=== PATIENT | male | born 1970 | race Caucasian/White ===

== ENCOUNTER 2017-08-28 10:42 | Emergency (ER) | payer OTHER ==
[~2017-08-28] VITALS: Ht 180.3 cm; Wt 113.6 kg
[2017-08-28 11:23] LABS: HEMATOCRIT 41.8 % (39.0-50.0); HEMOGLOBIN 15.9 g/dl (14.0-18.0); IMMATURE GRANULOCYTES 0.4 % (0.0-1.0); MEAN CELL VOLUME 84.8 fL CALC (80.0-100.0); MEAN CORPUSCULAR HGB 32.3 pG CALC (26.0-32.0); NEUT# 3.05 thou/uL (1.82-7.42); RED BLOOD COUNT 4.93 mill/uL (4.70-6.10); RED CELL DISTRI WIDTH 11.8 % (11.5-15.5)
[2017-08-28 11:35] LABS: ALBUMIN 4.5 g/dL (3.2-5.0); ALKALINE PHOSPHATASE 78 u/l (38-126); ANION GAP 17 (6-22 (CALC)); BUN 19 mg/dL (9-20); BUN/CREATININE RATIO 19 (12-20 (CALC)); CARBON DIOXIDE 26 mmol/l (22-30); CHLORIDE 100 mmol/l (95-108); GFR > 60 ML/MIN (>=60 (CALC)); GFR FOR AFR.AMER. > 60 ML/MIN (>=60 (CALC)); LIPASE 197 u/l (23-300); POTASSIUM 4.2 mmol/l (3.5-5.1); SGOT/AST 39 u/l (17-59); SGPT/ALT 93 u/l (21-72); SODIUM 138 mmol/l (137-146); TOTAL PROTEIN 7.6 g/dL (6.3-8.2)
[2017-08-28 13:31] LABS: URINE BILIRUBIN - DIPSTICK NEGATIVE (NEGATIVE); URINE BLOOD DIPSTICK NEGATIVE (NEGATIVE); URINE COLOR YELLOW; URINE GLUCOSE - DIPSTICK >=1000 mg/dL (NEGATIVE); URINE KETONE NEGATIVE (NEGATIVE); URINE LEUK ESTERASE NEGATIVE (NEGATIVE); URINE NITRITE - DIPSTICK NEGATIVE (Negative); URINE PROTEIN - DIPSTICK 30 mg/dL (NEG-TRACE); URINE UROBILINOGEN - DIPSTICK 0.2 E.U./dL (0.2)
[2017-08-28 13:32] LABS: URINE CLARITY CLEAR
[2017-08-28 13:33] LABS: URINE RBC 0-2 RBC/hpf (0-5); URINE WBC 0-2 WBC/hpf (0-5)
[2017-08-28] MEDS ORDERED: PROTONIX40 MG PO (14:58)
[2017-08-28] MEDS ORDERED: TORADOL PO (14:58)
[2017-08-28 15:04] VITALS: BP 163/93
== END 2017-08-28 15:14 | disposition home or self-care (01) | DRG 392 ==
LOC: ED 10:42
PROVIDERS: Emergency Medicine
DX: R10.12 Left upper quadrant pain (principal); R73.9 Hyperglycemia, unspecified; R19.7 Diarrhea, unspecified; R11.2 Nausea with vomiting, unspecified; N20.0 Calculus of kidney
CPT/HCPCS: Q9967

== ENCOUNTER 2018-01-30 02:22 | Emergency (ER) | payer OTHER ==
[~2018-01-30] VITALS: Ht 180.3 cm; Wt 107.0 kg
[~2018-01-30 02:22] MED LIST: PROTONIX40 MG PO; TORADOL PO
[2018-01-30] MEDS ORDERED: NOVOLIN R100 UNIT/M SC (02:34)
[2018-01-30] MEDS ORDERED: NOVOLIN N100 UNIT/2 SC (02:34)
[2018-01-30 03:08] LABS: IMMATURE GRANULOCYTES 0.2 % (0.0-5.0); NEUT# 2.5 thou/uL (1.82-7.42); RED CELL DISTRI WIDTH 11.6 % (11.5-15.5)
[2018-01-30 03:14] LABS: ALBUMIN 3.9 g/dL (3.2-5.0); ALKALINE PHOSPHATASE 74 u/l (38-126); AMYLASE < 30 u/l (30-110); ANION GAP 12 (6-22 (CALC)); BILIRUBIN, TOTAL 0.9 mg/dL (0.0-1.4); BUN 16 mg/dL (9-20); BUN/CREATININE RATIO 19 (12-20 (CALC)); CARBON DIOXIDE 28 mmol/l (22-30); CHLORIDE 101 mmol/l (95-108); CREATININE 0.8 mg/dL (0.7-1.3); GFR > 60 ML/MIN (>=60 (CALC)); GFR FOR AFR.AMER. > 60 ML/MIN (>=60 (CALC)); LIPASE 147 u/l (23-300); POTASSIUM 4.3 mmol/l (3.5-5.1); SGOT/AST 24 u/l (17-59); SODIUM 136 mmol/l (137-146); TOTAL PROTEIN 6.4 g/dL (6.3-8.2)
[2018-01-30] MEDS ORDERED: VOLTAREN - GENE75 MG PO (03:45)
[2018-01-30 03:51] LABS: HEMOGLOBIN 14.6 g/dl (14.0-18.0)
[2018-01-30 03:52] LABS: HEMATOCRIT 39.2 % (39.0-50.0); MEAN CELL VOLUME 84.7 fL CALC (80.0-100.0); MEAN CORPUSCULAR HGB 31.5 pG CALC (26.0-32.0); MEAN CORPUSCULAR HGB CONC 37.2 g/L CALC (32.0-36.0)
[2018-01-30 03:53] LABS: RED BLOOD COUNT 4.63 mill/uL (4.70-6.10)
[2018-01-30 04:14] VITALS: BP 144/88
== END 2018-01-30 04:14 | disposition home or self-care (01) | DRG 563 ==
LOC: ED 02:22
PROVIDERS: Family Medicine
DX: S39.012A Strain of muscle, fascia and tendon of lower back, initial encounter (principal); N20.0 Calculus of kidney; E11.65 Type 2 diabetes mellitus with hyperglycemia; X58.XXXA Exposure to other specified factors, initial encounter

== ENCOUNTER 2018-02-25 20:45 | Emergency (ER) | payer OTHER ==
[~2018-02-25] VITALS: Ht 180.3 cm; Wt 106.6 kg
[~2018-02-25 20:45] MED LIST changes: +NOVOLIN N100 UNIT/2 SC; +NOVOLIN R100 UNIT/M SC; +VOLTAREN - GENE75 MG PO
[2018-02-25 21:33] LABS: HEMOGLOBIN 15.3 g/dl (14.0-18.0); IMMATURE GRANULOCYTES 0.5 % (0.0-5.0); MEAN CELL VOLUME 83.5 fL CALC (80.0-100.0); MEAN CORPUSCULAR HGB 31.9 pG CALC (26.0-32.0); MEAN CORPUSCULAR HGB CONC 38.3 g/L CALC (32.0-36.0); NEUT# 3.27 thou/uL (1.82-7.42); RED BLOOD COUNT 4.79 mill/uL (4.70-6.10); RED CELL DISTRI WIDTH 11.5 % (11.5-15.5)
[2018-02-25 21:45] LABS: ALBUMIN 4.1 g/dL (3.2-5.0); ALKALINE PHOSPHATASE 81 u/l (38-126); ANION GAP 15 (6-22 (CALC)); BILIRUBIN, TOTAL 0.7 mg/dL (0.0-1.4); BUN 15 mg/dL (9-20); BUN/CREATININE RATIO 20 (12-20 (CALC)); CARBON DIOXIDE 27 mmol/l (22-30); CHLORIDE 98 mmol/l (95-108); CREATININE 0.8 mg/dL (0.7-1.3); GFR > 60 ML/MIN (>=60 (CALC)); GFR FOR AFR.AMER. > 60 ML/MIN (>=60 (CALC)); POTASSIUM 4.1 mmol/l (3.5-5.1); SGOT/AST 27 u/l (17-59); SODIUM 136 mmol/l (137-146); TOTAL PROTEIN 6.9 g/dL (6.3-8.2)
[2018-02-25 23:13] LABS: URINE BILIRUBIN - DIPSTICK NEGATIVE (NEGATIVE); URINE BLOOD DIPSTICK NEGATIVE (NEGATIVE); URINE COLOR YELLOW; URINE GLUCOSE - DIPSTICK >=1000 mg/dL (NEGATIVE); URINE KETONE NEGATIVE (NEGATIVE); URINE LEUK ESTERASE NEGATIVE (NEGATIVE); URINE NITRITE - DIPSTICK NEGATIVE (Negative); URINE PROTEIN - DIPSTICK TRACE mg/dL (NEG-TRACE); URINE SPECIFIC GRAVITY 1.015; URINE UROBILINOGEN - DIPSTICK 0.2 E.U./dL (0.2)
[2018-02-25] MEDS ORDERED: LISINOP/HCTZ1 TA1 PO (23:29)
[2018-02-26 00:04] VITALS: BP 140/83
== END 2018-02-26 00:04 | disposition home or self-care (01) | DRG 305 ==
LOC: ED 20:45
PROVIDERS: Family Medicine
DX: I10 Essential (primary) hypertension (principal); E11.65 Type 2 diabetes mellitus with hyperglycemia
CPT/HCPCS: J0131

== ENCOUNTER 2018-07-03 04:39 | Emergency (ER) | payer OTHER ==
[~2018-07-03] VITALS: Ht 180.3 cm; Wt 104.4 kg
[~2018-07-03 04:39] MED LIST changes: +LISINOP/HCTZ1 TA1 PO
[2018-07-03 05:36] LABS: HEMATOCRIT 42.7 % (39.0-50.0); HEMOGLOBIN 16.1 g/dl (14.0-18.0); IMMATURE GRANULOCYTES 0.5 % (0.0-5.0); MEAN CELL VOLUME 84.4 fL CALC (80.0-100.0); MEAN CORPUSCULAR HGB 31.8 pG CALC (26.0-32.0); MEAN CORPUSCULAR HGB CONC 37.7 g/L CALC (32.0-36.0); NEUT# 3.03 thou/uL (1.82-7.42); RED BLOOD COUNT 5.06 mill/uL (4.70-6.10); RED CELL DISTRI WIDTH 11.9 % (11.5-15.5)
[2018-07-03 05:57] LABS: ALBUMIN 4.3 g/dL (3.2-5.0); ALKALINE PHOSPHATASE 69 u/l (38-126); ANION GAP 13 (6-22 (CALC)); BUN 20 mg/dL (9-20); BUN/CREATININE RATIO 25 (12-20 (CALC)); CARBON DIOXIDE 26 mmol/l (22-30); CHLORIDE 100 mmol/l (95-108); CREATININE 0.8 mg/dL (0.7-1.3); GFR > 60 ML/MIN (>=60 (CALC)); GFR FOR AFR.AMER. > 60 ML/MIN (>=60 (CALC)); POTASSIUM 4.2 mmol/l (3.5-5.1); SGOT/AST 19 u/l (17-59); SODIUM 135 mmol/l (137-146); TOTAL PROTEIN 6.8 g/dL (6.3-8.2)
[2018-07-03] MEDS ORDERED: VOLTAREN - GENE75 MG PO (06:57)
[2018-07-03] MEDS ORDERED: FIORICET PO (06:57)
[2018-07-03 07:10] VITALS: BP 144/89
== END 2018-07-03 07:10 | disposition home or self-care (01) | DRG 552 ==
LOC: ED 04:39
PROVIDERS: Family Medicine
DX: M46.92 Unspecified inflammatory spondylopathy, cervical region (principal); E11.9 Type 2 diabetes mellitus without complications; I10 Essential (primary) hypertension; R51 Headache

== ENCOUNTER 2019-08-17 19:40 | Observation (INO) | payer OTHER ==
[~2019-08-17] VITALS: Ht 180.3 cm; Wt 103.6 kg
[~2019-08-17 19:40] MED LIST changes: +FIORICET PO; -NOVOLIN N100 UNIT/2 SC; +NOVOLIN N100 UNIT/M
--- NOTE | 2019-08-17 21:57 | NUR ---
AMBULATED TO ROOM WITH STEADY GAIT.
--- NOTE | 2019-08-17 22:24 | NUR ---
tHE PATIENT WAS EXAMINED BY THE DOCTOR.
[2019-08-17 23:15] LABS: HEMATOCRIT 39.1 % (39.0-50.0); HEMOGLOBIN 14.5 g/dl (14.0-18.0); IMMATURE GRANULOCYTES 0.4 % (0.0-5.0); MEAN CELL VOLUME 84.8 fL CALC (80.0-100.0); MEAN CORPUSCULAR HGB 31.5 pG CALC (26.0-32.0); MEAN CORPUSCULAR HGB CONC 37.1 g/dL CAL (32.0-36.0); NEUT# 2.87 thou/uL (1.82-7.42); RED BLOOD COUNT 4.61 mill/uL (4.70-6.10); RED CELL DISTRI WIDTH 11.7 % (11.5-15.5)
[2019-08-17 23:22] LABS: ALBUMIN 4.1 g/dL (3.2-5.0); ALKALINE PHOSPHATASE 70 u/l (38-126); ANION GAP 15 (6-22 (CALC)); BILIRUBIN, TOTAL 0.9 mg/dL (0.0-1.4); BUN 16 mg/dL (9-20); BUN/CREATININE RATIO 19 (12-20 (CALC)); CARBON DIOXIDE 23 mmol/l (22-30); CHLORIDE 97 mmol/l (95-108); CREATININE 0.9 mg/dL (0.7-1.3); GFR > 60 ML/MIN (>=60 (CALC)); GFR FOR AFR.AMER. > 60 ML/MIN (>=60 (CALC)); POTASSIUM 4.5 mmol/l (3.5-5.1); SGOT/AST 29 u/l (17-59); SODIUM 131 mmol/l (137-146); TOTAL PROTEIN 6.7 g/dL (6.3-8.2)
[2019-08-18 01:27] LABS: URINE BILIRUBIN - DIPSTICK NEGATIVE (NEGATIVE); URINE BLOOD DIPSTICK NEGATIVE (NEGATIVE); URINE COLOR YELLOW; URINE GLUCOSE - DIPSTICK >=1000 mg/dL (NEGATIVE); URINE KETONE NEGATIVE (NEGATIVE); URINE LEUK ESTERASE NEGATIVE (NEGATIVE); URINE NITRITE - DIPSTICK NEGATIVE (Negative); URINE PH 6.5 (4.5-8.0); URINE PROTEIN - DIPSTICK NEGATIVE (NEG-TRACE); URINE UROBILINOGEN - DIPSTICK 0.2 E.U./dL (0.2)
--- NOTE | 2019-08-18 01:51 | NUR ---
REPORT GIVEN TO SABA HOOKS
--- NOTE | 2019-08-18 02:15 | NUR ---
[id number]- ADMISSION ASSESSMENT COMPLETED. PT. ORIENTED TO ROOM, CALL LIGHT, AND POC; VERBALIZES UNDERSTANDING. PT. REPORTS HE DROPPED SOMETHING ON HIS LEFT GREAT TOE ON TUESDAY AND SINCE THEN IT HAS GOTTEN MORE RED AND SWOLLEN AND FEELS TIGHT WITH PAIN; WILL CALL ER PHYSICIAN FOR PAIN MED ORDERS. ENCOURAGED TO CALL FOR ANY NEEDS. CALL LIGHT IS IN REACH. WILL CONTINUE TO MONITOR.
--- NOTE | 2019-08-18 02:57 | NUR ---
PT. MEDICATED FOR PAIN WITH ORDERED X1 DOSEOF TORADOL; WILL REASSESS.
[2019-08-18 03:03] VITALS: BP 146/76
[2019-08-18 03:40] VITALS: BP 146/78
[2019-08-18 05:06] LABS: ANION GAP 9 (6-22 (CALC)); BUN 15 mg/dL (9-20); BUN/CREATININE RATIO 20 (12-20 (CALC)); CARBON DIOXIDE 26 mmol/l (22-30); CHLORIDE 103 mmol/l (95-108); CREATININE 0.8 mg/dL (0.7-1.3); GFR > 60 ML/MIN (>=60 (CALC)); GFR FOR AFR.AMER. > 60 ML/MIN (>=60 (CALC)); POTASSIUM 4.3 mmol/l (3.5-5.1); SODIUM 134 mmol/l (137-146)
--- NOTE | 2019-08-18 05:45 | NUR ---
SCHEDULED FRANK BURK. DENIES NEEDS. ENCOURAGED TO CALL FOR ANY NEEDS.
[2019-08-18 08:34] VITALS: BP 150/97
--- NOTE | 2019-08-18 08:34 | NUR ---
PT SITTING IN BED. A&O X3. REDNESS AND TENDERNESS NOTED TO LT TOE, TOE LEFT OPENED TO AIR. PAIN UNDER CONTROL AT THIS TIME. ASSESSMENT COMPLETED. DISCUSSED POC. CALL LIGHT IN REACH. CONTINUE TO MONITOR
--- NOTE | 2019-08-18 13:51 | NUR ---
PT SITTING IN BED. NO OTHER NEEDS AT THIS TIME. CALL LIGHT IN REACH. CONTINUE TO MONITOR
[2019-08-18 14:50] VITALS: BP 144/76
--- NOTE | 2019-08-18 17:07 | NUR ---
PT SITTING IN BED. NO NEEDS AT THIS TIME. CALL LIGHT IN REACH. CONTINUE TO MONITOR
[2019-08-18 19:07] VITALS: BP 132/74
--- NOTE | 2019-08-18 19:25 | NUR ---
ASSESSMENT COMPLETED. NO DISTRESS NOTED. DENIES NEEDS/PAIN. LEFT GREAT TOE WITH SWELLING AND MILD REDNESS NOTED; SMALL SCABBING NOTED; INTACT. IV SITE PATENT AND ORDERED PRN IVF HUNG. ENCOURAGED TO CALL FOR ANY NEEDS. CALL LIGHT IS IN REACH. UPDATE DON POC.
--- NOTE | 2019-08-18 23:40 | NUR ---
PT. RESTING IN BED AND C/O HILL AND LEFT GREAT TOE PAIN AND MEDICATED WITH ORDERED PRN TORADOL; WILL REASSESS. OFFERED A COLD PACK AND DECLINES AT THIS TIME. VOICES NO CONCERNS. ENCOURAGED TO CALL FOR ANY NEEDS.
--- NOTE | 2019-08-19 04:02 | NUR ---
PT. RESTING IN BED WITH NO DISTRESS NOTED. REPORTS HE WANTS TO GO HOME TODAY; ENCOURAGED PT. TO SPEAK WITH MD THIS AM AND VOICES UNDERSTANDING. DENIES NEEDS/PAIN. CALL LIGHT IS IN REACH. WILL CONTINUE TO MONITOR.
[2019-08-19 04:46] VITALS: BP 139/83
[2019-08-19 05:52] LABS: HEMATOCRIT 36.9 % (39.0-50.0); HEMOGLOBIN 13.7 g/dl (14.0-18.0); MEAN CELL VOLUME 84.8 fL CALC (80.0-100.0); MEAN CORPUSCULAR HGB 31.5 pG CALC (26.0-32.0); MEAN CORPUSCULAR HGB CONC 37.1 g/dL CAL (32.0-36.0); RED BLOOD COUNT 4.35 mill/uL (4.70-6.10); RED CELL DISTRI WIDTH 11.6 % (11.5-15.5)
[2019-08-19 06:05] LABS: ANION GAP 9 (6-22 (CALC)); BUN 14 mg/dL (9-20); BUN/CREATININE RATIO 18 (12-20 (CALC)); CARBON DIOXIDE 25 mmol/l (22-30); CHLORIDE 105 mmol/l (95-108); CREATININE 0.7 mg/dL (0.7-1.3); GFR > 60 ML/MIN (>=60 (CALC)); GFR FOR AFR.AMER. > 60 ML/MIN (>=60 (CALC)); POTASSIUM 3.8 mmol/l (3.5-5.1); SODIUM 135 mmol/l (137-146)
[2019-08-19 07:17] VITALS: BP 143/82
--- NOTE | 2019-08-19 07:17 | NUR ---
PT SITTING IN BED WATCHING TV. A&O X3. NO DISTRESS NOTED. PT REQUESTS TO GO HOME TODAY. LT GREAT TOE SHOWING IMPROVEMENT COMPARED TO YESTERDAY. ASSESSMENT COMPLETED. DISCUSSED POC. CALL LIGHT IN REACH. CONTINUE TO MONITOR
[2019-08-19] MEDS ORDERED: BACTRIM DS1 TAB PO (11:31)
--- NOTE | 2019-08-19 12:30 | NUR ---
D/C INSTRUCTIONS GIVEN TO PT. PT VERBALIZES UNDERSTANDING.
--- NOTE | 2019-08-19 12:50 | NUR ---
Discharge instructions given. Patient verbalizes understanding of same. Discharged in stable condition via Ambulatory to Home with staff. All belongings sent with pt.
== END 2019-08-19 12:50 | disposition home or self-care (01) | DRG 603 ==
LOC: ED 19:40 → ED-I 08-18 00:40 → ED 08-18 01:02 → ED-I 08-18 01:03 → MS2 08-18 01:49
PROVIDERS: Emergency Medicine; Nurse Practitioner Family; ADMIT Internal Medicine; ATTEND Internal Medicine
DX: L03.032 Cellulitis of left toe (principal); S91.202A Unspecified open wound of left great toe with damage to nail, initial encounter; E11.65 Type 2 diabetes mellitus with hyperglycemia; E11.42 Type 2 diabetes mellitus with diabetic polyneuropathy; W20.8XXA Other cause of strike by thrown, projected or falling object, initial encounter; Y92.009 Unspecified place in unspecified non-institutional (private) residence as the place of occurrence of the external cause; Z79.4 Long term (current) use of insulin; Z11.59 Encounter for screening for other viral diseases
CPT/HCPCS: G0378; Q9967

== ENCOUNTER 2020-01-29 21:56 | Emergency (ER) | payer OTHER ==
[~2020-01-29] VITALS: Ht 180.3 cm; Wt 107.0 kg
[~2020-01-29 21:56] MED LIST changes: +BACTRIM DS1 TAB PO
[2020-01-29] MEDS ORDERED: CYCLOBENZAPRINE10 MG PO (23:20)
[2020-01-29] MEDS ORDERED: LORTAB 1010 MG PO (23:20)
[2020-01-29 23:30] VITALS: BP 160/82
== END 2020-01-29 23:30 | disposition home or self-care (01) | DRG 558 ==
LOC: ED 21:56
DX: M76.9 Unspecified enthesopathy, lower limb, excluding foot (principal); E11.40 Type 2 diabetes mellitus with diabetic neuropathy, unspecified; Z79.4 Long term (current) use of insulin

== ENCOUNTER 2020-06-19 05:00 | Observation (INO) | payer OTHER ==
[~2020-06-19] VITALS: Ht 180.3 cm; Wt 100.0 kg
[~2020-06-19 05:00] MED LIST changes: +CYCLOBENZAPRINE10 MG PO; +LORTAB 1010 MG PO
--- NOTE | 2020-06-19 05:02 | NUR ---
AMBULATED TO ROOM WITH STEADY GAIT
[2020-06-19 05:38] LABS: HEMATOCRIT 42.8 % (39.0-50.0); HEMOGLOBIN 15.6 g/dl (14.0-18.0); IMMATURE GRANULOCYTES 0.4 % (0.0-5.0); MEAN CELL VOLUME 83.1 fL CALC (80.0-100.0); MEAN CORPUSCULAR HGB 30.3 pG CALC (26.0-32.0); MEAN CORPUSCULAR HGB CONC 36.4 g/dL CAL (32.0-36.0); NEUT# 3.1 thou/uL (1.82-7.42); RED BLOOD COUNT 5.15 mill/uL (4.70-6.10); RED CELL DISTRI WIDTH 11.8 % (11.5-15.5)
[2020-06-19 06:01] LABS: ALBUMIN 4.5 g/dL (3.2-5.0); ALKALINE PHOSPHATASE 70 u/l (38-126); ANION GAP 12 (6-22 (CALC)); BILIRUBIN, TOTAL 0.9 mg/dL (0.0-1.4); BUN 14 mg/dL (9-20); BUN/CREATININE RATIO 19 (12-20 (CALC)); CARBON DIOXIDE 26 mmol/l (22-30); CHLORIDE 99 mmol/l (95-108); CREATININE 0.7 mg/dL (0.7-1.3); GFR > 60 ML/MIN (>=60 (CALC)); GFR FOR AFR.AMER. > 60 ML/MIN (>=60 (CALC)); LIPASE 1531 u/l (23-300); POTASSIUM 4.1 mmol/l (3.5-5.1); SGOT/AST 25 u/l (17-59); SODIUM 133 mmol/l (137-146); TOTAL PROTEIN 7.2 g/dL (6.3-8.2)
--- NOTE | 2020-06-19 06:03 | NUR ---
SR NO ST T CHANGES NO ECTOPY W/P/D SKIN DENIES PAIN NO DYSPNEA
--- NOTE | 2020-06-19 06:59 | NUR ---
PT REPORT TO NURSE DAI
--- NOTE | 2020-06-19 07:00 | NUR ---
RECIEVED REPORT FROM BRIT
--- NOTE | 2020-06-19 07:24 | NUR ---
REASSESSED PT AND HE STATES THAT HE IS IN CONTINUED CHEST PAIN, THAT THE MED GIVEN PRIOR DID NOT HELP. MD NOTIFIED. PLAN OF CARE UPDATED AND CALL LIGHT WITHIN REACH
[2020-06-19 08:05] LABS: URINE BILIRUBIN - DIPSTICK NEGATIVE (NEGATIVE); URINE COLOR YELLOW; URINE GLUCOSE - DIPSTICK >=1000 mg/dL (NEGATIVE); URINE KETONE NEGATIVE (NEGATIVE); URINE LEUK ESTERASE NEGATIVE (NEGATIVE); URINE PROTEIN - DIPSTICK NEGATIVE (NEG-TRACE); URINE UROBILINOGEN - DIPSTICK 0.2 E.U./dL (0.2)
[2020-06-19 08:09] LABS: URINE BLOOD DIPSTICK NEGATIVE (NEGATIVE); URINE NITRITE - DIPSTICK NEGATIVE (Negative)
--- NOTE | 2020-06-19 08:30 | NUR ---
PT NOTIFIED OF PLAN OF CARE AND HE VERBALIZED UNDERSTANDING.
--- NOTE | 2020-06-19 10:02 | NUR ---
REPORT RECEIVED FROM GINA HOOKS
--- NOTE | 2020-06-19 11:02 | NUR ---
PT MEDICATED WITH ASPIRIN PER ORDER. TOLERATED WELL. PT ADVISED OF CONT WAIT TIME. MONITOR IN PLACE. CALL LIGHT IWTHIN REACH.
--- NOTE | 2020-06-19 11:05 | NUR ---
PT REPORT PROVIDED TO MEG HOOKS
--- NOTE | 2020-06-19 11:05 | NUR ---
REPORT FROM MALAIKA HOOKS
--- NOTE | 2020-06-19 11:27 | NUR ---
CALL TO FLOOR FOR REPORT, NURSE TO RETUEN CALL.
--- NOTE | 2020-06-19 11:42 | NUR ---
NURSE RETURNS CALL, REPORT GIVEN
--- NOTE | 2020-06-19 11:46 | NUR ---
PATIENT TAKEN TO FLOOR BY Janine THOMPSON RN
--- NOTE | 2020-06-19 12:00 | NUR ---
PT ARRIVED TO THE FLOOR VIA A WHEELCHAIR. AXOX3, PT ABLE TO AMB ON HIS OWN. INTO BED. EDUCATED STEM FRAZER LIGHT, TV, BED AND TELEPHONE. WENT OVER LABS WITH THE PT AT THIS REQUEST. 02 RA. DENIES PAIN AT THIS TIME. ASSESSMENT COMPLETE. PT GIVEN A CLEAR LIQ DIET, EDUCATED ON DIET. FAITH DEIT, NO NAUSEA NO VOMITING. REPOSITIONED FOR COMFORT, SIDE RAILS UP CALL LIGHT IN REACH BED LOCKED IN LOW POSITION, WILL CONTINUE TO MONIOTR THE PATIENT. ALL SAFTY MEASURES IN PLACE.
[2020-06-19 12:07] VITALS: BP 133/86
--- NOTE | 2020-06-19 14:00 | NUR ---
VISITORS AT THE BEDSIDE , ALL QUESTIONS ANSWERED. NO DISTRESS NOTED AT THIS TIME.
[2020-06-19 14:50] VITALS: BP 132/76
--- NOTE | 2020-06-19 16:00 | NUR ---
PT RESTING IN THE BED WITH HIS EYES CLOSED. NO DISTRESS NOTED AT THIS TIME.
[2020-06-19 19:20] VITALS: BP 148/89
--- NOTE | 2020-06-19 19:42 | NUR ---
PT MEDICATED FOR HEADACHE 8/10 ON PAIN SCALE. PT ASKING FOR FOOD. DISCUSSED DIETARY OPTIONS WITH FULL LIQUID DIET. AGREED/FULL LIQUID SNACK PROVIDED.
--- NOTE | 2020-06-19 20:17 | NUR ---
STAT GLUCOSE ORDERED IN RESPONSE TO HAZARDOUS MATERIALS ANALYST REPORTING PT'S SUGAR CRITICAL HIGH READING AT 572. BLOOD GLUCOSE READING RETURNED NON-CRITICAL AT 268. PT INFORMED OF CORRECTED BLOOD GLUCOSE READING AND NEG TROPONINS.
--- NOTE | 2020-06-19 20:54 | NUR ---
PT MEDICATED W/INSULIN ORDERS PROVIDE FOR A BLOOD GLUCOSE LEVEL OF 268. LAB RESULTS REVIEWED WITH PT. IVF REPLENISHED AT THIS TIME ALSO. DENIES ANY OTHER NEEDS. CALL LIGHT AT HAND AND PT ENCOURAGED TO CALL NEEDS ARISE.
[2020-06-20 00:23] VITALS: BP 151/82
--- NOTE | 2020-06-20 04:35 | NUR ---
IVF REPLENISHED, NO S/O DISTRESS NOTED. PT SLEEPING, AWOKE TO MY ENTERING THE ROOM.
[2020-06-20 04:45] VITALS: BP 144/93
[2020-06-20 06:42] LABS: HEMATOCRIT 37.9 % (39.0-50.0); HEMOGLOBIN 13.8 g/dl (14.0-18.0); IMMATURE GRANULOCYTES 0.2 % (0.0-5.0); MEAN CORPUSCULAR HGB 30.9 pG CALC (26.0-32.0); MEAN CORPUSCULAR HGB CONC 36.4 g/dL CAL (32.0-36.0); NEUT# 2.56 thou/uL (1.82-7.42); RED BLOOD COUNT 4.46 mill/uL (4.70-6.10); RED CELL DISTRI WIDTH 11.8 % (11.5-15.5)
[2020-06-20 07:11] LABS: ALBUMIN 3.6 g/dL (3.2-5.0); ALKALINE PHOSPHATASE 61 u/l (38-126); ANION GAP 11 (6-22 (CALC)); BILIRUBIN, TOTAL 0.8 mg/dL (0.0-1.4); BUN 13 mg/dL (9-20); BUN/CREATININE RATIO 19 (12-20 (CALC)); CALCULATED LDLCHOLESTEROL 78 mg/dL (62-129 (CALC)); CARBON DIOXIDE 27 mmol/l (22-30); CHLORIDE 101 mmol/l (95-108); CHOLESTEROL HDL RATIO 8.1 (<4.4 (CALC)); CREATININE 0.7 mg/dL (0.7-1.3); GFR > 60 ML/MIN (>=60 (CALC)); GFR FOR AFR.AMER. > 60 ML/MIN (>=60 (CALC)); HDL CHOLESTEROL 20 mg/dL (>=40); LIPASE 127 u/l (23-300); MAGNESIUM 1.6 mg/dL (1.6-2.3); POTASSIUM 3.9 mmol/l (3.5-5.1); SGOT/AST 18 u/l (17-59); SODIUM 134 mmol/l (137-146); TOTAL CHOLESTEROL 162 mg/dl (0-199); TOTAL PROTEIN 5.9 g/dL (6.3-8.2); TOTAL TRIGLYCERIDES 319 mg/dl (30-149); VLDL CHOLESTROL 64 mg/dl (5-56 (CALC))
[2020-06-20 07:34] VITALS: BP 154/98
--- NOTE | 2020-06-20 08:16 | NUR ---
SHIFT CHANGE REPORT, PT AWAKE ALERT AND ORIENTED STATES HE FEELS MUCH BETTER AND HAVE NO PAIN AT THIS TIME, TELE IN PLACE, CALL ARREGUIN IN REACH.
[2020-06-20] MEDS ORDERED: PROTONIX40 M2 PO (08:26)
--- NOTE | 2020-06-20 09:50 | NUR ---
Discharge instructions given. Patient verbalizes understanding of same. Discharged in good condition via Ambulatory to Home with *Other. All belongings sent with pt.
== END 2020-06-20 09:44 | disposition home or self-care (01) | DRG 440 ==
LOC: ED 05:00 → ED-I 05:21 → ED 10:08 → MS2 10:09
PROVIDERS: Emergency Medicine; Nurse Practitioner; ADMIT Internal Medicine; ATTEND Internal Medicine
DX: K85.90 Acute pancreatitis without necrosis or infection, unspecified (principal); E11.65 Type 2 diabetes mellitus with hyperglycemia; I10 Essential (primary) hypertension; E11.40 Type 2 diabetes mellitus with diabetic neuropathy, unspecified; Z79.4 Long term (current) use of insulin; Z87.442 Personal history of urinary calculi; Z20.822 Contact with and (suspected) exposure to COVID-19
CPT/HCPCS: G0378; J1650; Q9967; S0164

== ENCOUNTER 2021-05-02 19:09 | Emergency (ER) | payer OTHER ==
[~2021-05-02] VITALS: Ht 180.3 cm; Wt 104.0 kg
[2021-05-02] VITALS (10 sets, daily range): BP systolic 139–167; BP diastolic 78–97
[~2021-05-02 19:09] MED LIST changes: +PROTONIX40 M2 PO
[2021-05-02 19:57] LABS: URINE BILIRUBIN - DIPSTICK NEGATIVE (NEGATIVE); URINE BLOOD DIPSTICK NEGATIVE (NEGATIVE); URINE COLOR YELLOW; URINE GLUCOSE - DIPSTICK >=1000 mg/dL (NEGATIVE); URINE KETONE TRACE mg/dL (NEGATIVE); URINE LEUK ESTERASE NEGATIVE (NEGATIVE); URINE PROTEIN - DIPSTICK NEGATIVE (NEG-TRACE); URINE SPECIFIC GRAVITY 1.015; URINE UROBILINOGEN - DIPSTICK 0.2 E.U./dL (0.2)
[2021-05-02 19:57] LABS: HEMATOCRIT 37.9 % (39.0-50.0); HEMOGLOBIN 14.2 g/dl (14.0-18.0); IMMATURE GRANULOCYTES 0.2 % (0.0-5.0); MEAN CELL VOLUME 84.6 fL CALC (80.0-100.0); MEAN CORPUSCULAR HGB 31.7 pG CALC (26.0-32.0); MEAN CORPUSCULAR HGB CONC 37.5 g/dL CAL (32.0-36.0); NEUT# 3.24 thou/uL (1.82-7.42); RED BLOOD COUNT 4.48 mill/uL (4.70-6.10); RED CELL DISTRI WIDTH 11.4 % (11.5-15.5)
[2021-05-02 19:58] LABS: URINE NITRITE - DIPSTICK NEGATIVE (Negative)
[2021-05-02 20:13] LABS: ALBUMIN 4.2 g/dL (3.2-5.0); ALKALINE PHOSPHATASE 76 u/l (38-126); ANION GAP 14 (6-22 (CALC)); BILIRUBIN, TOTAL 0.8 mg/dL (0.0-1.4); BUN 19 mg/dL (9-20); BUN/CREATININE RATIO 23 (12-20 (CALC)); CARBON DIOXIDE 23 mmol/l (22-30); CHLORIDE 99 mmol/l (95-108); CREATININE 0.8 mg/dL (0.7-1.3); GFR > 60 ML/MIN (>=60 (CALC)); GFR FOR AFR.AMER. > 60 ML/MIN (>=60 (CALC)); POTASSIUM 3.7 mmol/l (3.5-5.1); SGOT/AST 26 u/l (17-59); SODIUM 133 mmol/l (137-146); TOTAL PROTEIN 6.6 g/dL (6.3-8.2)
[2021-05-02 20:24] LABS: MYOGLOBIN 66 ng/mL (0 - 121)
== END 2021-05-02 23:06 | disposition home or self-care (01) | DRG 313 ==
LOC: ED 19:09
PROVIDERS: Emergency Medicine
DX: R07.9 Chest pain, unspecified (principal); E11.65 Type 2 diabetes mellitus with hyperglycemia; E11.40 Type 2 diabetes mellitus with diabetic neuropathy, unspecified; T38.3X6A Underdosing of insulin and oral hypoglycemic [antidiabetic] drugs, initial encounter; Z91.128 Patient's intentional underdosing of medication regimen for other reason; Z79.4 Long term (current) use of insulin

== ENCOUNTER 2021-08-22 23:19 | Emergency (ER) | payer OTHER ==
[~2021-08-22] VITALS: Ht 180.3 cm; Wt 97.0 kg
[2021-08-23 00:07] VITALS: BP 161/96
[2021-08-23 00:37] LABS: HEMATOCRIT 39.5 % (39.0-50.0); HEMOGLOBIN 14.4 g/dl (14.0-18.0); IMMATURE GRANULOCYTES 0.5 % (0.0-5.0); MEAN CELL VOLUME 85.9 fL CALC (80.0-100.0); MEAN CORPUSCULAR HGB 31.3 pG CALC (26.0-32.0); MEAN CORPUSCULAR HGB CONC 36.5 g/dL CAL (32.0-36.0); NEUT# 3.07 thou/uL (1.82-7.42); RED BLOOD COUNT 4.6 mill/uL (4.70-6.10); RED CELL DISTRI WIDTH 11.6 % (11.5-15.5)
[2021-08-23 00:56] LABS: ALBUMIN 4.1 g/dL (3.2-5.0); ALKALINE PHOSPHATASE 66 u/l (38-126); ANION GAP 10 (6-22 (CALC)); BUN 15 mg/dL (9-20); BUN/CREATININE RATIO 19 (12-20 (CALC)); CARBON DIOXIDE 27 mmol/l (22-30); CHLORIDE 101 mmol/l (95-108); CREATININE 0.8 mg/dL (0.7-1.3); GFR FOR AFR.AMER. > 60 ML/MIN (>=60 (CALC)); GFR OTHER RACES > 60 ML/MIN (>=60 (CALC)); POTASSIUM 3.3 mmol/l (3.5-5.1); SGOT/AST 25 u/l (17-59); SODIUM 134 mmol/l (137-146); TOTAL PROTEIN 6.7 g/dL (6.3-8.2)
[2021-08-23 01:00] LABS: BILIRUBIN, TOTAL 0.4 mg/dL (0.0-1.4)
[2021-08-23 01:05] VITALS: BP 164/90
[2021-08-23 01:07] VITALS: BP 164/91
[2021-08-23 01:21] VITALS: BP 141/78
[2021-08-23 01:35] LABS: URINE BILIRUBIN - DIPSTICK NEGATIVE (NEGATIVE); URINE BLOOD DIPSTICK NEGATIVE (NEGATIVE); URINE COLOR YELLOW; URINE GLUCOSE - DIPSTICK >=1000 mg/dL (NEGATIVE); URINE KETONE NEGATIVE (NEGATIVE); URINE LEUK ESTERASE NEGATIVE (NEGATIVE); URINE PH 5.5 (4.5-8.0); URINE PROTEIN - DIPSTICK NEGATIVE (NEG-TRACE); URINE UROBILINOGEN - DIPSTICK 0.2 E.U./dL (0.2)
[2021-08-23 01:39] LABS: URINE NITRITE - DIPSTICK NEGATIVE (Negative)
[2021-08-23 01:41] VITALS: BP 131/83
[2021-08-23] MEDS ORDERED: TOPROL XL50 MG PO (02:02)
[2021-08-23 02:11] VITALS: BP 131/83
== END 2021-08-23 02:27 | disposition home or self-care (01) | DRG 305 ==
LOC: ED 23:19
PROVIDERS: Family Medicine
DX: I10 Essential (primary) hypertension (principal); E11.65 Type 2 diabetes mellitus with hyperglycemia; E11.40 Type 2 diabetes mellitus with diabetic neuropathy, unspecified; T46.4X6A Underdosing of angiotensin-converting-enzyme inhibitors, initial encounter; T38.3X6A Underdosing of insulin and oral hypoglycemic [antidiabetic] drugs, initial encounter; Z91.128 Patient's intentional underdosing of medication regimen for other reason; Z79.4 Long term (current) use of insulin; Z20.822 Contact with and (suspected) exposure to COVID-19

== ENCOUNTER 2021-12-15 08:24 | Emergency (ER) | payer OTHER ==
[~2021-12-15] VITALS: Ht 180.3 cm; Wt 102.2 kg
[~2021-12-15 08:24] MED LIST changes: +TOPROL XL50 MG PO
[2021-12-15 08:31] VITALS: BP 196/101
[2021-12-15 08:34] VITALS: BP 164/98
[2021-12-15 08:55] VITALS: BP 173/103
[2021-12-15 09:00] VITALS: BP 149/95
[2021-12-15 09:08] LABS: HEMATOCRIT 40.4 % (39.0-50.0); HEMOGLOBIN 15.2 g/dl (14.0-18.0); IMMATURE GRANULOCYTES 0.5 % (0.0-5.0); MEAN CELL VOLUME 85.8 fL CALC (80.0-100.0); MEAN CORPUSCULAR HGB 32.3 pG CALC (26.0-32.0); MEAN CORPUSCULAR HGB CONC 37.6 g/dL CAL (32.0-36.0); NEUT# 2.14 thou/uL (1.82-7.42); RED BLOOD COUNT 4.71 mill/uL (4.70-6.10); RED CELL DISTRI WIDTH 11.7 % (11.5-15.5)
[2021-12-15 09:08] LABS: URINE BILIRUBIN - DIPSTICK NEGATIVE (NEGATIVE); URINE BLOOD DIPSTICK NEGATIVE (NEGATIVE); URINE COLOR YELLOW; URINE GLUCOSE - DIPSTICK 250 mg/dL (NEGATIVE); URINE KETONE NEGATIVE (NEGATIVE); URINE LEUK ESTERASE NEGATIVE (NEGATIVE); URINE PROTEIN - DIPSTICK 30 mg/dL (NEG-TRACE); URINE SPECIFIC GRAVITY 1.025
[2021-12-15 09:09] LABS: URINE EPITHELIAL CELLS FEW EPI/hpf (0-FEW); URINE MUCUS MODERATE hpf (NONE-FEW); URINE NITRITE - DIPSTICK NEGATIVE (Negative)
[2021-12-15 09:15] VITALS: BP 148/99
[2021-12-15 09:22] LABS: ALBUMIN 4.4 g/dL (3.2-5.0); ALKALINE PHOSPHATASE 52 u/l (38-126); BUN 15 mg/dL (9-20); BUN/CREATININE RATIO 19 (12-20 (CALC)); CARBON DIOXIDE 27 mmol/l (22-30); CHLORIDE 104 mmol/l (95-108); CREATININE 0.8 mg/dL (0.7-1.3); GFR FOR AFR.AMER. > 60 ML/MIN (>=60 (CALC)); GFR OTHER RACES > 60 ML/MIN (>=60 (CALC)); LIPASE 157 u/l (23-300); SGOT/AST 28 u/l (17-59); SODIUM 137 mmol/l (137-146); TOTAL PROTEIN 6.7 g/dL (6.3-8.2)
[2021-12-15 09:26] LABS: ANION GAP 10 (6-22 (CALC)); POTASSIUM 4.4 mmol/l (3.5-5.1)
[2021-12-15] MEDS ORDERED: TRAMADOL HYDROC50 M1 PO (12:26)
[2021-12-15] MEDS ORDERED: MOTRIN800 MG PO (12:26)
[2021-12-15 12:39] VITALS: BP 148/99
== END 2021-12-15 12:41 | disposition home or self-care (01) | DRG 446 ==
LOC: ED 08:24
PROVIDERS: Emergency Medicine
DX: K82.4 Cholesterolosis of gallbladder (principal)
CPT/HCPCS: Q9967

== ENCOUNTER 2021-12-17 05:06 | Observation (INO) | payer OTHER ==
[2021-12-17] VITALS (24 sets, daily range): BP systolic 130–181; BP diastolic 74–117
[~2021-12-17] VITALS: Ht 180.3 cm; Wt 100.0 kg
[~2021-12-17 05:06] MED LIST changes: +MOTRIN800 MG PO; +TRAMADOL HYDROC50 M1 PO
--- NOTE | 2021-12-17 05:10 | NUR ---
PT TO ROOM 14 FOR TRIAGE.
[2021-12-17 05:57] LABS: ALBUMIN 4.4 g/dL (3.2-5.0); ALKALINE PHOSPHATASE 56 u/l (38-126); AMYLASE 61 u/l (30-110); ANION GAP 13 (6-22 (CALC)); BILIRUBIN, TOTAL 0.9 mg/dL (0.0-1.4); BUN 12 mg/dL (9-20); BUN/CREATININE RATIO 15 (12-20 (CALC)); CARBON DIOXIDE 23 mmol/l (22-30); CHLORIDE 104 mmol/l (95-108); CREATININE 0.8 mg/dL (0.7-1.3); GFR FOR AFR.AMER. > 60 ML/MIN (>=60 (CALC)); GFR OTHER RACES > 60 ML/MIN (>=60 (CALC)); LIPASE 164 u/l (23-300); POTASSIUM 4.3 mmol/l (3.5-5.1); SGOT/AST 28 u/l (17-59); SODIUM 135 mmol/l (137-146)
[2021-12-17 06:15] LABS: HEMATOCRIT 40.2 % (39.0-50.0); HEMOGLOBIN 15.1 g/dl (14.0-18.0); IMMATURE GRANULOCYTES 0.2 % (0.0-5.0); MEAN CELL VOLUME 84.6 fL CALC (80.0-100.0); MEAN CORPUSCULAR HGB 31.8 pG CALC (26.0-32.0); MEAN CORPUSCULAR HGB CONC 37.6 g/dL CAL (32.0-36.0); NEUT# 2.38 thou/uL (1.82-7.42); RED BLOOD COUNT 4.75 mill/uL (4.70-6.10); RED CELL DISTRI WIDTH 11.5 % (11.5-15.5)
[2021-12-17 07:03] LABS: URINE BILIRUBIN - DIPSTICK NEGATIVE (NEGATIVE); URINE BLOOD DIPSTICK NEGATIVE (NEGATIVE); URINE COLOR YELLOW; URINE GLUCOSE - DIPSTICK 500 mg/dL (NEGATIVE); URINE KETONE NEGATIVE (NEGATIVE); URINE LEUK ESTERASE NEGATIVE (NEGATIVE); URINE PROTEIN - DIPSTICK NEGATIVE (NEG-TRACE)
[2021-12-17 07:04] LABS: URINE NITRITE - DIPSTICK NEGATIVE (Negative)
--- NOTE | 2021-12-17 07:05 | NUR ---
RECEIVED REPORT FROM OUTGOING NURSE. PT IN ROOM RESTING, LAYING IN BED. PT DID COMPLAIN OF PAIN 9/10 IN THE RUQ
--- NOTE | 2021-12-17 08:00 | NUR ---
PT IN ROOM LAYING IN BED. PT C/O PAIN 08/30. PROVIDER IS AWARE AND ORDERED MEDS
--- NOTE | 2021-12-17 08:35 | NUR ---
PReassessment of patient completed. VS CHECKED. BP ELEVATED. PROVIDER ORDERED MEDS. PT C/O OF NAUSEA AND ZOFRAN IS GIVEN
--- NOTE | 2021-12-17 09:32 | NUR ---
PT IN ROOM VOMITING. PROVIDER IS AWARE AND MEDS WAS ORDER. PT C/O HEADACHE, NAUSEA AND VOMITING. WAITING ON SURGEON TO CONSULT WITH PROVIDER
[2021-12-17] MEDS ORDERED: LISINOPRIL40 MG PO (10:23)
--- NOTE | 2021-12-17 10:30 | NUR ---
Reassessment of patient completed. No distress noted. MEDS RECONCILE
--- NOTE | 2021-12-17 11:20 | NUR ---
PT TRANSFERRED VIA WHEELCHAIR TO ROOM 290. BEDSIDE REPORT TO BE PROVIDED
--- NOTE | 2021-12-17 11:20 | NUR ---
PT ARRIVED TO UNIT VIA WJHEELCHAIR WITH VISITOR AT SIDE, PT STOODF FROM WHEELCHAIR AND AMBULATED TO BED IN ROOM WITH STEADY GAIT. PT STATES HE HAS RLQ THAT HE CAME INTO ER TUESDAY FOR THIS PAIN AND WAS SEMNT HOME WITH INSTRUCTIONS TO F/U WITH SURGEON, PT UNABLE TO REACH SURGEON AND PAIN WAS UNBEARABLE SO HE RETURNED TO HOSPTIAL AGAIN. PER REPORT PT HAS N/V IN ER AND HE STATES HE FEELS IT WAS RELATED TO MEDICATION (DILAUDID IV) AND IT HAS NOW SUBSIBED. PT ASKING ABOUT DIET AND STATES THAT HE WAS EATING AT HOME AND DID NOT FEEL IT EFFECTED HIS PAIN AT ALL. PT AWARE OF CLEAR LIQUID DIET AND INFORMED THAT NURSE WILL NOTIFY MD OF PT REQUEST FOR "REGULAR FOOD" HE FEELS IT DIDN'T MAKE A DIFFERENCE AT HOME. ORIENTED TO ROOM AND UNIT CALL ARREGUIN WITHIN REACH WILL CONTINUE TO MONITOR
--- NOTE | 2021-12-17 11:27 | NUR ---
PT TRANSPORTED TO MED SURG ROOM 290 VIA WHEELCHAIR. . NAD. REPORT GIVEN TO LINDSEY HOOKS ON FLOOR. NO CONCERNS AT THIS TIME.
--- NOTE | 2021-12-17 13:00 | NUR ---
PT RESTING WITH EYES CLOSED, NO S/S OF DISTRESS OR DISCOMFORT, VISITOR GONE AT THIS TIME, WILL CONTINUE TO MONITOR
[2021-12-17] MEDS ORDERED: ALBUTEROL SUL0.083 % IN (13:54)
--- NOTE | 2021-12-17 15:41 | NUR ---
PT REMAINS DOZING, NO C/O OFFERED.
--- NOTE | 2021-12-17 17:43 | NUR ---
Patient accucheck 179 at 1735. Insulin coverage starts at 2100. No insulin given at this time.
--- NOTE | 2021-12-17 20:15 | NUR ---
RECEIVED REPORT FROM JESSEE SCHNEIDER. PT ON BED WATCHING TV: A&O X3. EVEN AND UNLABORED RESPIRATIONS: CLEAR LUNG SOUNDS UPON AUSCULTATIONS. IV SITE HEALTHY AND PATENT. HYPOACTIVE BOWEL SOUNDS X4 QUADRATS. PT AWARE OF CLEAR LIQUID DIET. PT'S BS 229 COVERED WITH HUMALOG 2 UNITS. PT C/O PAIN RT FLANK, LEVEL 8/10; ADMINISTERED PAIN MED PER EMAR. SAFETY PRECAUTIONS IN PLACE WITH CALL LIGHT IN REACH.
--- NOTE | 2021-12-18 00:15 | NUR ---
PT RESTING WITH EYES CLOSED. IV SITE HEALTHY AND PATENT, INFUSING FLUIDS PER ORDER. NO NEEDS AT THIS TIME. SAFETY PRECAUTIONS IN PLACE WITH CALL LIGHT IN REACH.
--- NOTE | 2021-12-18 01:18 | NUR ---
PT C/O PAIN ON RT FLANK, LEVEL 8/10; ADMINISTERED PAIN MED PER EMAR. SAFETY PRECAUTIONS IN PLACE WITH CALL LIGHT IN REACH.
[2021-12-18 04:02] VITALS: BP 140/87
--- NOTE | 2021-12-18 04:05 | NUR ---
PT RESTING ON BED WITH EYES CLOSED. NO SIGNS OF DISTRESS NOTED. VS OBTAINED. IV SITE HEALTHY AND PATENT, INFUSING FLUIDS PER ORDER. NO NEEDS AT THIS TIME. SAFETY PRECAUTIONS IN PLACE WITH CALL LIGHT IN REACH.
[2021-12-18 06:56] VITALS: BP 155/84
[2021-12-18 07:32] VITALS: BP 155/84
--- NOTE | 2021-12-18 08:36 | NUR ---
SHIFT CHANGE REPORT AT BEDSIDE, PT AWAKE ALERT AND ORIENED RESTING IN BED, C/O STABBING ABD PAIN @ 7/10, IVF INFUSING, CALL ARREGUIN IN REACH AND BED LOCKED IN LOWEST POSITION.
--- NOTE | 2021-12-18 12:39 | NUR ---
RESTING IN BED, REPORTED DR PARK ROUNDED AND INFORMED HIM HE WILL BE TAKING HIM TO SURGERY IN AM BUT PT DOES NOT KNOW EXACTLY WHAT THE SURGERY IS CALLED BUT THE SURGEON WILL BE GOING THROUGH HIS [place], INFORMED NURSE WILL FIND OUT MORE ABOUT PROCEDURE IN INFORM HIM. SPOUSE VISITING AT THIS TIME.
--- NOTE | 2021-12-18 16:00 | NUR ---
STABLE CONDITION, ALL NEEDS ADDRESSED
[2021-12-18 18:55] VITALS: BP 146/79
--- NOTE | 2021-12-18 20:20 | NUR ---
RECEIVED REPORT FROM BRENNA. PT ON BED WATCHING TV: A&O X3. EVEN AND UNLABORED RESPIRATIONS; CLEAR LUNG SOUNDS UPON AUSCULTATION. ACTIVE BOWEL SOUNDS X4 QUADRANTS. IV SITE HEALTHY AND PATENT. PT AWARE OF NPO STATUS AFTER MIDNIGHT. SAFETY PRECAUTIONS IN PLACE WITH CALL LIGHT IN REACH.
--- NOTE | 2021-12-18 21:05 | NUR ---
PT C/O PAIN TO RT FLANK, LEVEL 8/10; ADMINISTERED PAIN MED PER EMAR. PT REMINDED OF NPO STATUS AFTER MIDNIGHT: PT AGREED AND SHOWED UNDERSTANDING. SAFETY PRECAUTIONS IN PLACE WITH CALL LIGHT IN REACH.
--- NOTE | 2021-12-19 | NUR ---
PT WAKING UP UPON MATERIALS BRANCH CHIEF ENTERS THE ROOM. PT REMINDED OF NPO STATUS; PT AGREED AND SHOWED UNDERSTANDING. NO DISTRESS NOTED. PT DENIES PAIN AT THIS TIME. IV SITE HEALTHY AND PATENT, INFUSING FLUIDS PER ORDER. SAFETY PRECAUTIONS IN PLACE WITH CALL LIGHT IN REACH.
--- NOTE | 2021-12-19 04:39 | NUR ---
PT ON BED WATCHING TV. NO DISTRESS OR PAIN NOTED. PT REMAINS NPO. IV SITE HEALTHY AND PATENT, INFUSING FLUIDS PER ORDER. SAFETY PRECAUTIONS IN PLACE WITH CALL LIGHT IN REACH.
[2021-12-19 05:15] VITALS: BP 149/93
[2021-12-19 05:51] LABS: ALBUMIN 4.2 g/dL (3.2-5.0); ALKALINE PHOSPHATASE 60 u/l (38-126); ANION GAP 11 (6-22 (CALC)); BUN 9 mg/dL (9-20); BUN/CREATININE RATIO 11 (12-20 (CALC)); CARBON DIOXIDE 24 mmol/l (22-30); CHLORIDE 106 mmol/l (95-108); CREATININE 0.8 mg/dL (0.7-1.3); GFR FOR AFR.AMER. > 60 ML/MIN (>=60 (CALC)); GFR OTHER RACES > 60 ML/MIN (>=60 (CALC)); POTASSIUM 4.1 mmol/l (3.5-5.1); SGOT/AST 24 u/l (17-59); SODIUM 137 mmol/l (137-146); TOTAL PROTEIN 6.6 g/dL (6.3-8.2)
[2021-12-19 05:58] VITALS: BP 153/95
[2021-12-19 06:00] VITALS: BP 153/95
--- NOTE | 2021-12-19 08:25 | NUR ---
PT WENT TO OR
[2021-12-19] MEDS ORDERED: TRAMADOL HYDROC50 M1 PO (09:21)
[2021-12-19 11:13] VITALS: BP 153/97
--- NOTE | 2021-12-19 12:30 | NUR ---
DC INSTRUCTIONS GIVEN, MEDICATION INSTRUCTIONS GIVEN. IV DCED. PT TAKEN TO CAR IN WC.
== END 2021-12-19 12:35 | disposition home or self-care (01) | DRG 419 ==
LOC: ED 05:06 → ED-I 09:50 → MS2 10:21 → ED 10:21 → MS2 12-19 12:35
PROVIDERS: Emergency Medicine; ADMIT Internal Medicine; ATTEND Internal Medicine
PROC: 0FT44ZZ Resection of Gallbladder, Percutaneous Endoscopic Approach (ICD-10-PCS; principal; 2021-12-19)
DX: K81.2 Acute cholecystitis with chronic cholecystitis (principal); I10 Essential (primary) hypertension; E11.40 Type 2 diabetes mellitus with diabetic neuropathy, unspecified; E11.65 Type 2 diabetes mellitus with hyperglycemia; Z79.4 Long term (current) use of insulin; Z87.442 Personal history of urinary calculi; Z20.822 Contact with and (suspected) exposure to COVID-19
CPT/HCPCS: G0378; J0131; J1610; J1650; Q9966; Q9967

== ENCOUNTER 2022-06-22 06:50 | Day surgery (SDC) | payer OTHER ==
[~2022-06-22] VITALS: Ht 180.3 cm; Wt 108.9 kg
[~2022-06-22 06:50] MED LIST changes: +ALBUTEROL SUL0.083 % IN; +FARXIGA5 MG PO; +LISINOPRIL40 MG PO; +OMEPRAZOLE DR40 MG PO
[2022-06-22] MEDS ORDERED: TYLENOL500 MG PO (07:05)
[2022-06-22 09:16] VITALS: BP 114/76
== END 2022-06-22 09:08 | disposition home or self-care (01) | DRG 951 ==
LOC: ENDO 06:50 → ORM 08:00 → ENDO 09:08
PROVIDERS: ATTEND Surgery
PROC: 0DBN8ZX Excision of Sigmoid Colon, Via Natural or Artificial Opening Endoscopic, Diagnostic (ICD-10-PCS; principal; 2022-06-22)
DX: Z12.11 Encounter for screening for malignant neoplasm of colon (principal); K63.5 Polyp of colon; I10 Essential (primary) hypertension; Z80.0 Family history of malignant neoplasm of digestive organs; Z83.71 Family history of colonic polyps

== ENCOUNTER 2022-09-14 03:59 | Emergency (ER) | payer OTHER ==
[~2022-09-14] VITALS: Ht 180.3 cm; Wt 90.0 kg
[~2022-09-14 03:59] MED LIST changes: +TYLENOL500 MG PO
[2022-09-14 04:15] VITALS: BP 144/91
[2022-09-14 04:30] VITALS: BP 147/100
[2022-09-14 04:43] LABS: BASO% 0.4 % (0-3); EOS% 1.7 % (0-8); HEMATOCRIT 41.5 % (39.0-50.0); HEMOGLOBIN 15.3 g/dl (14.0-18.0); IMMATURE GRANULOCYTES 0.6 % (0.0-5.0); LYMPH% 40.7 % (15-41); MEAN CELL VOLUME 83.5 fL CALC (80.0-100.0); MEAN CORPUSCULAR HGB 30.8 pG CALC (26.0-32.0); MEAN CORPUSCULAR HGB CONC 36.9 g/dL CAL (32.0-36.0); MONO% 5.6 % (2-13); NEUT# 2.47 thou/uL (1.82-7.42); RED BLOOD COUNT 4.97 mill/uL (4.70-6.10); RED CELL DISTRI WIDTH 11.4 % (11.5-15.5)
[2022-09-14 04:45] VITALS: BP 136/95
[2022-09-14 04:57] LABS: ALBUMIN 4.3 g/dL (3.2-5.0); ALKALINE PHOSPHATASE 75 u/l (38-126); AMYLASE 49 u/l (30-110); ANION GAP 13 (6-22 (CALC)); BILIRUBIN, TOTAL 0.8 mg/dL (0.2-1.3); BUN 13 mg/dL (9-20); BUN/CREATININE RATIO 16 (12-20 (CALC)); CARBON DIOXIDE 26 mmol/l (22-30); CHLORIDE 99 mmol/l (95-108); CREATININE 0.8 mg/dL (0.7-1.3); GFR FOR AFR.AMER. > 60 ML/MIN (>=60 (CALC)); GFR OTHER RACES > 60 ML/MIN (>=60 (CALC)); LIPASE 174 u/l (23-300); SGOT/AST 26 u/l (17-59); SODIUM 134 mmol/l (137-146)
[2022-09-14 05:00] VITALS: BP 142/87
[2022-09-14 05:39] LABS: URINE BILIRUBIN - DIPSTICK NEGATIVE (NEGATIVE); URINE COLOR YELLOW; URINE GLUCOSE - DIPSTICK 500 mg/dL (NEGATIVE)
[2022-09-14 05:40] LABS: URINE KETONE NEGATIVE (NEGATIVE); URINE PH 6.5 (4.5-8.0); URINE PROTEIN - DIPSTICK NEGATIVE (NEG-TRACE); URINE SPECIFIC GRAVITY 1.015
[2022-09-14 05:41] LABS: URINE BLOOD DIPSTICK NEGATIVE (NEGATIVE); URINE LEUK ESTERASE NEGATIVE (NEGATIVE); URINE NITRITE - DIPSTICK NEGATIVE (Negative)
[2022-09-14] MEDS ORDERED: LORTAB 1010 MG PO (06:33)
[2022-09-14 06:49] VITALS: BP 142/87
== END 2022-09-14 06:49 | disposition home or self-care (01) | DRG 392 ==
LOC: ED 03:59
PROVIDERS: Emergency Medicine
DX: R10.31 Right lower quadrant pain (principal); E11.65 Type 2 diabetes mellitus with hyperglycemia; I10 Essential (primary) hypertension; E11.40 Type 2 diabetes mellitus with diabetic neuropathy, unspecified; Z87.442 Personal history of urinary calculi; Z20.822 Contact with and (suspected) exposure to COVID-19
CPT/HCPCS: Q9967

== ENCOUNTER 2023-03-06 15:29 | Emergency (ER) | payer SELFPAY ==
[~2023-03-06] VITALS: Ht 180.3 cm; Wt 95.0 kg
[2023-03-06 17:38] LABS: URINE BILIRUBIN - DIPSTICK Negative (NEGATIVE); URINE BLOOD DIPSTICK Negative (NEGATIVE); URINE GLUCOSE - DIPSTICK >=1000 mg/dL (NEGATIVE); URINE KETONE Negative (NEGATIVE); URINE LEUK ESTERASE Negative (NEGATIVE); URINE NITRITE - DIPSTICK Negative (Negative); URINE PROTEIN - DIPSTICK 30 mg/dL (NEG-TRACE); URINE SPECIFIC GRAVITY 1.015
[2023-03-06 17:39] LABS: URINE COLOR Yellow
[2023-03-06 17:40] LABS: URINE RBC 0-2 RBC/hpf (0-5); URINE WBC 0-2 WBC/hpf (0-5)
[2023-03-06 18:24] LABS: BASO% 0.3 % (0-3); EOS% 1.4 % (0-8); HEMATOCRIT 39.5 % (39.0-50.0); HEMOGLOBIN 14.8 g/dl (14.0-18.0); IMMATURE GRANULOCYTES 0.2 % (0.0-5.0); LYMPH% 37.7 % (15-41); MEAN CORPUSCULAR HGB 31.5 pG CALC (26.0-32.0); MEAN CORPUSCULAR HGB CONC 37.5 g/dL CAL (32.0-36.0); MONO% 4.9 % (2-13); NEUT# 3.27 thou/uL (1.82-7.42); NEUT% 55.5 % (42-76); RED BLOOD COUNT 4.7 mill/uL (4.70-6.10); RED CELL DISTRI WIDTH 11.4 % (11.5-15.5)
[2023-03-06 18:40] LABS: ALBUMIN 4.4 g/dL (3.2-5.0); ALKALINE PHOSPHATASE 63 u/l (38-126); ANION GAP 10 (6-22 (CALC)); BILIRUBIN, TOTAL 0.6 mg/dL (0.2-1.3); BUN 15 mg/dL (9-20); BUN/CREATININE RATIO 20 (12-20 (CALC)); CARBON DIOXIDE 26 mmol/l (22-30); CHLORIDE 103 mmol/l (95-108); CREATININE 0.8 mg/dL (0.7-1.3); GFR FOR AFR.AMER. > 60 ML/MIN (>=60 (CALC)); GFR OTHER RACES > 60 ML/MIN (>=60 (CALC)); POTASSIUM 3.9 mmol/l (3.5-5.1); SGOT/AST 28 u/l (17-59); SODIUM 136 mmol/l (137-146); TOTAL PROTEIN 6.8 g/dL (6.3-8.2)
[2023-03-06] MEDS ORDERED: IBUPROFEN600 MG PO (21:13)
[2023-03-06] MEDS ORDERED: TAMSULOSIN0.4 MG PO (21:13)
[2023-03-06 21:19] VITALS: BP 168/101
== END 2023-03-06 21:30 | disposition home or self-care (01) | DRG 694 ==
LOC: ED 15:29
PROVIDERS: Emergency Medicine; Nurse Practitioner Family
DX: N20.0 Calculus of kidney (principal); I72.8 Aneurysm of other specified arteries; I10 Essential (primary) hypertension; E11.40 Type 2 diabetes mellitus with diabetic neuropathy, unspecified; Z79.84 Long term (current) use of oral hypoglycemic drugs; Z87.442 Personal history of urinary calculi

== ENCOUNTER 2023-11-12 04:32 | Emergency (ER) | payer SELFPAY ==
[~2023-11-12] VITALS: Ht 180.3 cm; Wt 93.0 kg
[2023-11-12] VITALS (8 sets, daily range): BP systolic 144–167; BP diastolic 87–118
[~2023-11-12 04:32] MED LIST changes: +IBUPROFEN600 MG PO; +TAMSULOSIN0.4 MG PO
[2023-11-12] MEDS ORDERED: SODIUM CHLORIDE 0.9% 1,000 ML IV ONE (04:50)
[2023-11-12] MEDS ORDERED: KETOROLAC TROMETHAMINE 30 MG/ML SDV IV ONE (04:50)
[2023-11-12] MEDS ORDERED: DEXAMETHASONE SOD. PHOSPHATE 10 MG/ML VIAL IV ONE (04:55)
[2023-11-12] MEDS ORDERED: DiphenhydrAMINE HCL 50 MG/ML SDV IV ONE (04:55)
[2023-11-12] MEDS ORDERED: ACETAMINOPHEN 500 MG TAB PO ONE (04:55)
[2023-11-12] MEDS ORDERED: PROMETHAZINE HCL 25 MG/ML AMP IV ONE (04:55)
[2023-11-12] MEDS ORDERED: INSULIN REGULAR (HUMAN) 100 UNIT/ML INJ SC ONE (05:00)
[2023-11-12 05:13] LABS: BASO% 0.2 % (0-3); EOS% 1.8 % (0-8); HEMATOCRIT 41.4 % (39.0-50.0); HEMOGLOBIN 15.3 g/dl (14.0-18.0); IMMATURE GRANULOCYTES 0.8 % (0.0-5.0); LYMPH% 32.4 % (15-41); MEAN CELL VOLUME 84.7 fL CALC (80.0-100.0); MEAN CORPUSCULAR HGB 31.3 pG CALC (26.0-32.0); MONO% 7.1 % (2-13); NEUT# 2.94 thou/uL (1.82-7.42); NEUT% 57.7 % (42-76); RED BLOOD COUNT 4.89 mill/uL (4.70-6.10); RED CELL DISTRI WIDTH 11.5 % (11.5-15.5)
[2023-11-12 05:31] LABS: ALBUMIN 4.4 g/dL (3.2-5.0); CREATININE 0.8 mg/dL (0.7-1.3); MAGNESIUM 1.6 mg/dL (1.6-2.3)
[2023-11-12 05:37] LABS: POTASSIUM 4.3 mmol/l (3.5-5.1)
[2023-11-12 05:41] LABS: BILIRUBIN, TOTAL 0.9 mg/dL (0.2-1.3)
[2023-11-12 05:48] LABS: URINE BILIRUBIN - DIPSTICK Negative (NEGATIVE); URINE BLOOD DIPSTICK Negative (NEGATIVE); URINE GLUCOSE - DIPSTICK 500 mg/dL (NEGATIVE); URINE KETONE Negative (NEGATIVE); URINE LEUK ESTERASE Negative (NEGATIVE); URINE NITRITE - DIPSTICK Negative (Negative); URINE PROTEIN - DIPSTICK Trace mg/dL (NEG-TRACE); URINE UROBILINOGEN - DIPSTICK 0.2 E.U./dL (0.2)
[2023-11-12 05:50] LABS: URINE COLOR Yellow
[2023-11-12] MEDS ORDERED: LABETALOL HCL 20 MG/ 4 ML CARTRG IV ONE (06:10)
[2023-11-12] MEDS ORDERED: LOPRESSOR25 M1 PO (06:32)
== END 2023-11-12 06:55 | disposition home or self-care (01) | DRG 103 ==
LOC: ED 04:32
PROVIDERS: Family Medicine
DX: R51.9 Headache, unspecified (principal); E11.65 Type 2 diabetes mellitus with hyperglycemia; I10 Essential (primary) hypertension; E11.40 Type 2 diabetes mellitus with diabetic neuropathy, unspecified; Z20.822 Contact with and (suspected) exposure to COVID-19

== ENCOUNTER 2024-02-12 18:56 | Emergency (ER) | payer OTHER ==
[~2024-02-12] VITALS: Ht 180.3 cm; Wt 75.0 kg
[~2024-02-12 18:56] MED LIST changes: +LOPRESSOR25 M1 PO
[2024-02-12 19:18] VITALS: BP 160/99
[2024-02-12] MEDS ORDERED: SODIUM CHLORIDE 0.9% 1,000 ML IV ONE (19:25)
[2024-02-12 19:30] VITALS: BP 156/95
[2024-02-12] MEDS ORDERED: traMADol HCL 50 MG/TAB PO ONE (19:30)
[2024-02-12] MEDS ORDERED: KETOROLAC TROMETHAMINE 30 MG/ML SDV IV ONE (19:30)
[2024-02-12 20:03] LABS: BASO% 0.3 % (0-3); EOS% 0.9 % (0-8); HEMATOCRIT 39.1 % (39.0-50.0); HEMOGLOBIN 14.5 g/dl (14.0-18.0); IMMATURE GRANULOCYTES 0.1 % (0.0-5.0); MEAN CELL VOLUME 85.4 fL CALC (80.0-100.0); MEAN CORPUSCULAR HGB 31.7 pG CALC (26.0-32.0); MEAN CORPUSCULAR HGB CONC 37.1 g/dL CAL (32.0-36.0); MONO% 6.4 % (2-13); NEUT# 4.31 thou/uL (1.82-7.42); NEUT% 64.3 % (42-76); RED BLOOD COUNT 4.58 mill/uL (4.70-6.10); RED CELL DISTRI WIDTH 11.5 % (11.5-15.5)
[2024-02-12 20:20] LABS: ALBUMIN 4.2 g/dL (3.2-5.0); BILIRUBIN, TOTAL 0.9 mg/dL (0.2-1.3); CREATININE 0.9 mg/dL (0.7-1.3); POTASSIUM 3.7 mmol/l (3.5-5.1); TOTAL PROTEIN 6.6 g/dL (6.3-8.2)
[2024-02-12 20:35] LABS: URINE BILIRUBIN - DIPSTICK Negative (NEGATIVE); URINE BLOOD DIPSTICK Negative (NEGATIVE); URINE COLOR Yellow; URINE GLUCOSE - DIPSTICK 500 mg/dL (NEGATIVE); URINE KETONE Negative (NEGATIVE); URINE LEUK ESTERASE Negative (NEGATIVE); URINE NITRITE - DIPSTICK Negative (Negative); URINE PH 7.5 (4.5-8.0); URINE PROTEIN - DIPSTICK 30 mg/dL (NEG-TRACE); URINE SPECIFIC GRAVITY 1.015; URINE UROBILINOGEN - DIPSTICK 0.2 E.U./dL (0.2)
[2024-02-12 20:43] LABS: URINE RBC 0-2 RBC/hpf (0-5); URINE WBC 0-2 WBC/hpf (0-5)
[2024-02-12 21:10] VITALS: BP 160/99
== END 2024-02-12 21:10 | disposition home or self-care (01) | DRG 563 ==
LOC: ED 18:56
PROVIDERS: Family Medicine
DX: S83.91XA Sprain of unspecified site of right knee, initial encounter (principal); E11.65 Type 2 diabetes mellitus with hyperglycemia; E11.40 Type 2 diabetes mellitus with diabetic neuropathy, unspecified; I10 Essential (primary) hypertension; W55.22XA Struck by cow, initial encounter; Z87.442 Personal history of urinary calculi; Z79.4 Long term (current) use of insulin